=== PATIENT | female | born 1940 | race Caucasian/White ===

== ENCOUNTER → 2017-02-09 | Outpatient (CLI) | payer MEDICARE, BC ==
[~2017-02-09] MED LIST: ACTOS DPS15 MG PO; ALLOPURINOL300 MG PO; ASPIR-LOW81 MG PO; CARDIZEM CD DP120 MG PO; CEPACOL SORE T1 EACH PO; CLOTRIMAZOLE-BE45 GM TP; DELTASONE DPS10 MG PO; DUONEB DPS3 ML IH; FLEXERIL-DPS10 MG PO; GLUCOVANCE 5/501 TAB PO; HYDROCHLOROTHIA50 MG PO; KLOR-CON M2020 ME1 PO; LASIX DPS40 MG PO; LEVEMIR100 UNIT/1 SQ; LOTRISONE DPS45 GM TP; MAALOX DPS30 ML PO; MILK OF MAG PO; MINOCYCLINE HC100 MG PO; MUCINEX600 MG PO; MULTI VITAMIN1 EACH PO; NASACORT AQ D16.5 GM NS; NILSTAT SUSP DPS5 ML PO; OCUVITE SOFTGE1 EACH PO; OMNICEF DPS300 MG PO; OXYBUTYNIN CHLO10 MG PO; PROAIR RESPICL90 MCG IH; SENOKOT DPS8.6 MG PO; SINGULAIR10 MG PO; SURFAK DPS240 MG PO; SYNTHROID75 MCG PO; TAMBOCOR100 MG PO; TOPROL XL DPS50 MG PO; TYLENOL325 MG PO; VITAMIN D35000 UNIT PO; VITAMIN E400 UNI2 PO; XARELTO20 MG PO; ZYRTEC DPS10 MG PO
--- NOTE | 2017-02-21 10:56 | SS ---
ADMIT: 02/09/2017 RM/LOC: [facility] MR#: [id number] [address] [facility] [address] [place], [place] [address] [address] LINDQUIST [address] [place] [address] Sleep Study SEX: F AGE: 77 : 1940 STUDY DATE: 02/09/2017 CLINICAL HISTORY: A 77-year-old female, body mass 52.9, 61 inches tall, 280 pounds, known history of obstructive sleep apnea in the sleep lab for CPAP titration. TECHNICAL DESCRIPTION: CPAP titration performed on night of 02/09/2017, attended by a trained isotope technologist. TITRATION FINDINGS: TITRATION DESCRIPTION: The patient was titrated from 5 cm CPAP to 14 cm of CPAP. The patient requested to sleep in a recliner. A Mirage Moon mask was used. SLEEP: Total time in bed is 382.5 minutes, total sleep time is 142.5 minutes, sleep efficiency 37.3%. Severely reduced sleep efficiency of 37.3%, during the study. 32.5% hours spent in stage II sleep. No REM sleep was seen. BREATHING: Ongoing obstructive hypopneas were seen on lower CPAP pressures. At 13 cm, the patient was seen in REM sleep in lateral position with complete resolution of obstructive events. REM supine sleep was not seen. OXYGEN SATURATION: Average oxygen saturation is 86%, lowest oxygen is 80%. 96.8% hours spent in saturating 80% to 90%. Oxygen saturations were low in absence of obstructive events at the ending pressure of CPAP at 13 cm. Oxygen levels were less than 88%, for more than 5 minutes after resolution of obstructive sleep apnea on CPAP at 13 cm. CARDIAC: Average heart rate 88 beats per minute. MOVEMENTS/POSITION: During the study, the patient slept in supine position predominantly with no significant leg movements. IMPRESSION AND PLAN: 1. Severely reduced sleep efficiency with only 142.5 minutes of sleep time with a sleep efficiency of 37.3%. Recommend using CPAP at 13 cm with 3 L of oxygen bled in with mask per patient preference. The patient's current Mirage Moon mask appears to have a poor seal and may benefit from a small Mirage Quattro Full Face Mask. 2. Of note, no REM supine sleep was seen during the study. I would recommend initiating CPAP at 13 cm with 3 L of oxygen bled in and recommend compliance followup. Noel Torrez MD/ fany JOB #: [id number] CC: Abhay Durand, Attending Physician ADMIT: 02/09/2017 RM/LOC: [facility] MR#: [id number] [address] [id number] [place] DANIEL[address] [facility] [place] [address] Sleep Study SEX: F AGE: 77 : 1940 Jeaneth Cain MD, Family Physician
== END | disposition home or self-care (01) ==
LOC: RESC 20:12
DX: G47.33 Obstructive sleep apnea (adult) (pediatric) (principal)

== ENCOUNTER → 2017-02-09 | Outpatient (CLI) | payer MEDICARE, BC | END | disposition home or self-care (01) | LOC: RAD.S 12:57 | DX: Z12.31 Encounter for screening mammogram for malignant neoplasm of breast (principal); R92.1 Mammographic calcification found on diagnostic imaging of breast ==